=== PATIENT | male | born 1955 | race Caucasian/White ===

== ENCOUNTER → 2022-02-24 | Outpatient (CLI) | payer MEDICARE ==
[~2022-02-24] MED LIST: CLINDAMYCIN HC300 MG PO; DILANTIN PO; HYDROCODONE BIT1 T11 PO; MOTRIN800 MG PO
[2022-02-24 14:06] LABS: ALKALINE PHOSPHATASE 110 U/L (45-117); BUN 13 mg/dl (7-24); CHLORIDE 107 mmol/L (98-107); CREATININE 0.91 mg/dL (0.70-1.30); SGOT/AST 24 IU/L (3-35); SGPT/ALT 24 U/L (12-78); SODIUM 140 mmol/L (136-145); TOTAL PROTEIN 7.1 gm/dL (6.4-8.2)
== END | disposition home or self-care (01) ==
LOC: LAB 02:57 → US 02:57
PROVIDERS: ATTEND Internal Medicine
DX: J44.9 Chronic obstructive pulmonary disease, unspecified (principal); R91.1 Solitary pulmonary nodule; B35.1 Tinea unguium

== ENCOUNTER → 2023-05-13 | Outpatient (CLI) | payer MEDICARE | END | disposition home or self-care (01) | LOC: RAD 15:12 | PROVIDERS: ATTEND Internal Medicine | DX: J44.1 Chronic obstructive pulmonary disease with (acute) exacerbation (principal); R91.1 Solitary pulmonary nodule ==

== ENCOUNTER → 2024-12-13 | Outpatient (CLI) | payer MEDICARE | END | disposition home or self-care (01) | LOC: US 01:49 | PROVIDERS: ATTEND Internal Medicine | DX: K40.90 Unilateral inguinal hernia, without obstruction or gangrene, not specified as recurrent (principal); N50.3 Cyst of epididymis; N43.3 Hydrocele, unspecified; N50.812 Left testicular pain ==

== ENCOUNTER → 2025-08-08 | Outpatient (CLI) | payer MEDICARE | END | disposition home or self-care (01) | LOC: LAB 12:33 → RAD 12:33 | PROVIDERS: ATTEND Internal Medicine | DX: M51.370 Other intervertebral disc degeneration, lumbosacral region with discogenic back pain only (principal); R10.84 Generalized abdominal pain; M25.512 Pain in left shoulder; I70.0 Atherosclerosis of aorta ==

== ENCOUNTER 2025-08-10 15:25 | Emergency (ER) | payer MEDICARE ==
[~2025-08-10] VITALS: Wt 47.2 kg
[~2025-08-10 15:25] MED LIST changes: -IOHEXOL 300 MG/ML 100 ML VIAL IV ONE
[2025-08-10 17:47] LABS: BASO # 0.0 10*3/uL (0.0-0.1); BASO % 0.5 % (0.0-1.0); EOS # 0.3 10*3/uL (0.0-0.4); EOS % 3.1 % (1.0-4.0); MEAN CELL VOLUME 99.0 fl (80.0-94.0); MEAN CORPUSCULAR HGB 32.1 pg (27.0-31.0); MEAN PLATELET VOLUME 8.3 fl (9.6-12.3); MONO # 0.8 10*3/uL (0.1-1.0); MONO % 8.8 % (3.0-9.0); NEUT # 4.5 10*3/uL (2.3-7.9); NEUT % 52.4 % (47.0-73.0); NUCLEATED RED BLOOD CELL 0.0 % (0.0-0.0); NUCLEATED RED BLOOD CELL 0.0 10*3/uL (0.0-0.0); PLATELET COUNT AUTOMATED 282 10*3/uL (130-400); RED CELL DISTRI WIDTH 14.5 % (0-14.5)
[2025-08-10 18:07] LABS: ACT PARTIAL THROMBO TIME 27.3 SECONDS (20.0-32.1)
[2025-08-10 18:10] LABS: BUN 11 mg/dl (9-23); SGPT/ALT 16 U/L (5-49)
[2025-08-10] MEDS ORDERED: IOHEXOL 300 MG/ML 100 ML VIAL IV ONE (18:25)
[2025-08-10 18:46] LABS: BILIRUBIN Negative (Negative); BLOOD Negative (Negative); CLARITY Clear (Clear); COLOR Yellow (Yellow); KETONE Negative (Negative); LEUKO ESTERASE Negative (Negative); NITRITE Negative (Negative); PH 5.5 (4.5-8.0); SPECIFIC GRAVITY 1.015 (1.001-1.030); UROBILINOGEN 0.2 E.U./dl (0.0-1.0)
[2025-08-10 18:52] LABS: WBC 0-2 wbc/hpf (0-5)
== END 2025-08-11 01:53 | disposition short-term general hospital (02) ==
LOC: ED 15:25
PROVIDERS: Student in an Organized Health Care Education/Training Program
DX: K80.00 Calculus of gallbladder with acute cholecystitis without obstruction (principal); K83.8 Other specified diseases of biliary tract; R10.9 Unspecified abdominal pain; Z98.890 Other specified postprocedural states; Z88.0 Allergy status to penicillin; Z88.8 Allergy status to other drugs, medicaments and biological substances

== ENCOUNTER → 2025-08-10 | Outpatient (CLI) | payer MEDICARE ==
[~2025-08-10] MED LIST changes: +IOHEXOL 300 MG/ML 100 ML VIAL IV ONE
== END | disposition home or self-care (01) ==
LOC: US 02:26 → CT 14:00
PROVIDERS: ATTEND Internal Medicine
DX: N28.1 Cyst of kidney, acquired (principal); R10.84 Generalized abdominal pain; R91.1 Solitary pulmonary nodule; J98.4 Other disorders of lung; K82.8 Other specified diseases of gallbladder